=== PATIENT | male | born 1960 | race Hispanic/Latino ===

== ENCOUNTER 2020-02-26 10:57 | Outpatient (CLI) | payer MEDICARE ==
--- NOTE | 2020-02-26 12:44 | ULT ---
RENAL ULTRASOUND: HISTORY: Chronic kidney disease. FINDINGS: Both kidneys measure approximately 11 cm in length. No hydronephrosis. Cortical echogenicity appear s normally preserved. No renal mass seen. The urinary bladder is distended and appears unremarkable . Bilateral ureteral jets are confirmed. IMPRESSION: Unremarkable renal ultrasound. POS: AGW
== END 2020-02-26 10:58 | disposition home or self-care (01) ==
LOC: BICULT 10:57
PROVIDERS: ATTEND Internal Medicine Nephrology
DX: N18.2 Chronic kidney disease, stage 2 (mild) (principal)
CPT/HCPCS: 76770

== ENCOUNTER 2020-02-29 11:18 | Emergency (ER) | payer MEDICARE, OTHER ==
[2020-02-29 12:22] LABS: #Eosinphils 0.1 thou/uL (0.0-0.7); #Lymphocytes 1.4 thou/uL (1.20-3.40); #Monocytes 1.3 thou/uL (0.11-0.59); #Neutrophils 10.7 thou/uL (1.40-6.50); %Basophils 0.1 % (0.0-1.0); %Eosinophils 0.4 % (0.0-10.0); %Lymphocytes 10.1 % (21.0-51.0); %Monocytes 9.8 % (0.0-10.0); %Neutrophils 79.5 % (42.0-75.0); Hemoglobin 15.5 g/dL (14.0-18.0); Mean Corpuscular HGB CONC 33.5 g/dL (32.0-36.0); Mean Corpuscular Hemoglobin 30.8 pg (27.0-31.0); Mean Platelet Volume 7.1 fL (7.4-10.4); Platelet Count 244 thou/uL (130-400); RBC Distribution Width 12.6 % (11.5-14.5); Red Blood Cell (RBC) Count 5.05 mill/uL (4.70-6.10); White Blood Cell (WBC) Count 13.5 thou/uL (4.8-10.8)
--- NOTE | 2020-02-29 12:28 | RAD ---
XR Chest 1 View Portable HISTORY: Shortness of breath, COVID 19 Positive COMPARISON: None FINDINGS: The heart size is at upper limits of normal. The lungs are well expanded without focal area s of consolidation, pneumothorax or pleural effusions. IMPRESSION: No radiographic evidence of acute cardiopulmonary process. Please note that chest radiographs exhibit low sensitivity for subtle groundglass opacities that can be seen in viral infections.
[2020-02-29 12:57] LABS: ALT (SGPT) 25 U/L (8-55); AST (SGOT) 16 U/L (5-34); Alkaline Phosphatase 61 U/L (40-110); Anion Gap 13 mmol/L (10-20); BUN (Urea Nitrogen) 14 mg/dL (8.4-25.7); Bilirubin, Total 1.1 mg/dL (0.2-1.2); Calc. Creatinine Clearance 0 mL/min (70-130); Calcium 9.4 mg/dL (7.8-10.44); Carbon Dioxide 28 mmol/L (23-31); Chloride 98 mmol/L (98-107); Estimated GFR-MDRD 70; Globulin 3.7 g/dL (2.4-3.5); Glucose 133 mg/dL (80-115); Potassium 3.4 mmol/L (3.5-5.1); Protein, Total 7.7 g/dL (5.8-8.1); Sodium 136 mmol/L (136-145)
[2020-02-29] MEDS ORDERED: Acetaminophen 500 MG TAB ONE (15:45)
== END 2020-02-29 15:43 | disposition home or self-care (01) ==
LOC: ERS 11:18
DX: U07.1 COVID-19 (principal); I10 Essential (primary) hypertension
CPT/HCPCS: 71045; 80053; 83880; 84484; 85025; 93005; 94760